=== PATIENT | male | born 1970 | race Caucasian/White ===

== ENCOUNTER 2017-02-24 07:28 | Observation (INO) | payer MEDICAID ==
[~2017-02-24] VITALS: Ht 165.1 cm; Wt 123.5 kg
[2017-02-24] MEDS ORDERED: ASPIRIN 325 MG TAB PO ONE (08:00)
[2017-02-24 08:18] LABS: BASOPHILS % 0.6 % (0.0-2.0); EOSINOPHILS # 0.1 10^3/ul (0.0-0.5); EOSINOPHILS % 2.1 % (0.0-7.0); HEMATOCRIT 39.9 % (42.0-52.0); HEMOGLOBIN 13.3 g/dl (14.0-18.0); LYMPHOCYTES # 2.6 10^3/ul (0.8-2.9); LYMPHOCYTES % 39.1 % (15.0-51.0); MEAN CORPUSCULAR HEMOGLOBIN 28.2 pg (29.0-33.0); MEAN CORPUSCULAR HGB CONC 33.3 g/dl (32.0-37.0); MEAN CORPUSCULAR VOLUME 84.5 fl (82.0-101.0); MEAN PLATELET VOLUME 9.2 fl (7.4-10.4); MONOCYTE # 0.5 10^3/ul (0.3-0.9); MONOCYTES % 7.7 % (0.0-11.0); NEUTROPHIL # 3.3 10^3/ul (1.6-7.5); NEUTROPHILS % 50.2 % (39.0-77.0); PLATELET COUNT 419 10^3/UL (140-415); RED BLOOD COUNT 4.72 10^6/ul (4.70-6.10); RED CELL DISTRIBUTION WIDTH 13.2 % (11.5-14.5); WHITE BLOOD COUNT 6.6 10^3/ul (4.8-10.8)
[2017-02-24 08:36] LABS: ANION GAP 21 (8-16); BLOOD UREA NITROGEN 14 mg/dl (7-20); CALCIUM 8.9 mg/dl (8.4-10.2); CARBON DIOXIDE 27 mmol/L (21-31); CHLORIDE 99 mmol/L (97-110); CREATININE 0.92 mg/dl (0.61-1.24); GLUCOSE 134 mg/dl (70-220); POTASSIUM 3.8 mmol/L (3.5-5.1); SODIUM 143 mmol/L (135-144)
[2017-02-24 08:37] LABS: INR 0.99; PROTIME 13.1 Sec (12.2-14.2)
[2017-02-24 08:38] LABS: PARTIAL THROMBOPLASTIN TIME 28.1 Sec (25.0-35.0)
--- NOTE | 2017-02-24 08:52 | RADRPT ---
PROCEDURE: Chest Radiograph. CLINICAL INDICATION: Chest pain TECHNIQUE: Single frontal chest radiograph. COMPARISON: None available FINDINGS: The cardiomediastinal silhouette is within normal limits. There is mild basilar atelectasis. No inf iltrate or effusion is seen. The bones are intact. IMPRESSION: 1. No evidence of acute cardiopulmonary disease. 2. Mild basilar atelectasis. RPTAT: KK .Fredis Ackerman MD, MD Date Time Electronically viewed and signed by .Fredis Ackerman MD, MD on 02/24/2017 08:52 .B/
[2017-02-24 08:55] LABS: TROPONIN-I < 0.012 ng/ml (0.00-0.12)
--- NOTE | 2017-02-24 09:02 | ERA ---
ER Documentation Chief Complaint Date/Time DATE: 02/24/17 TIME: 07 Chief Complaint syncope after having chest pain this morning HPI 46-year-old male presents complaining of chest pain and syncope. Patient was in his usual state of health until just prior to arrival. Patient was going to have a bowel movement when he had an episode of nonspecific central chest discomfort. This was non-provoked and nonradiating. He describes it as moderate and a 6/10. He was followed by a brief syncopal episode but no sensation of palpitations, headache or weakness or numbness or seizure activity. Upon arrival, patient continues to have nonspecific chest pain but no lightheadedness or neurologic symptoms. ROS All systems reviewed and are negative except as per history of present illness. Medications Home Meds No Active Prescriptions or Reported Meds Allergies Allergies: Coded Allergies: No Known Allergy (Unverified , 02/24/17) PMhx/Soc History of Surgery: No Anesthesia Reaction: No Hx Neurological Disorder: No Hx Respiratory Disorders: No Hx Cardiac Disorders: No Hx Psychiatric Problems: No Hx Miscellaneous Medical Probl: Yes (Gout) Hx Alcohol Use: Yes (socially) Hx Substance Use: No Hx Tobacco Use: No Smoking Status: Never smoker FmHx Family history of heart disease Physical Exam Vitals Vital Signs Date Time Temp Pulse Resp B/P Pulse Ox O2 Delivery O2 Flow Rate FiO2 02/24/17 07:33 97.4 88 18 144/78 96 Physical Exam GENERAL: The patient is well developed and appropriate for usual state of health in no apparent distress HEENT: Pupils equal, round, and reactive to light. EOMI. There is no scleral icterus. NECK: C-spine is soft and supple, there is no meningismus. There is no cervical lymphadenopathy. LUNGS: Clear to auscultation bilaterally. There are no rales, wheezes or rhonchi. HEART: Regular rate and rhythm, no murmurs, clicks, rubs or gallops. ABDOMEN: Soft, non-tender, non-distended. There are bowel sounds in all four quadrants. No rebound or guarding. EXTREMITIES: There is no peripheral cyanosis or edema. No focal swelling or erythema. NEURO: The patient moves all four extremities with 5/5 strength. Cranial nerves II - XII are intact. Normal gait. Alert and oriented SKIN: There is no apparent rash or petechiae. HEME/LYMPHATIC: There is no evidence of excessive bruising or lymphedema. PSYCHIATRIC: The patient does not appear anxious or depressed. Result Diagram: 02/24/1780402/24/17804 Results 24 hrs Laboratory Tests Test 02/24/17 08:05 White Blood Count 6.610^3/ul Red Blood Count 4.7210^6/ul Hemoglobin 13.3g/dl Hematocrit 39.9% Mean Corpuscular Volume 84.5fl Mean Corpuscular Hemoglobin 28.2pg Mean Corpuscular Hemoglobin Concent 33.3g/dl Red Cell Distribution Width 13.2% Platelet Count 10577^3/UL Mean Platelet Volume 9.2fl Neutrophils % 50.2% Lymphocytes % 39.1% Monocytes % 7.7% Eosinophils % 2.1% Basophils % 0.6% Nucleated Red Blood Cells % 0.0/100WBC Neutrophils # 3.310^3/ul Lymphocytes # 2.610^3/ul Monocytes # 0.510^3/ul Eosinophils # 0.110^3/ul Basophils # 0.010^3/ul Nucleated Red Blood Cells # 0.010^3/ul Prothrombin Time 13.1Sec Prothrombin Time Ratio 1.0 INR International Normalized Ratio 0.99 Activated Partial Thromboplast Time 28.1Sec Sodium Level 143mmol/L Potassium Level 3.8mmol/L Chloride Level 99mmol/L Carbon Dioxide Level 27mmol/L Anion Gap 21 Blood Urea Nitrogen 14mg/dl Creatinine 0.92mg/dl Glucose Level 134mg/dl Calcium Level 8.9mg/dl Troponin I < 0.012ng/ml Current Medications Medications (Trade) Dose Ordered Sig/Kem Route PRN Reason Start Time Stop Time Status Last Admin Dose Admin Aspirin (Aspirin) 325 mg ONCE ONCE PO 02/24/17 08:00 02/24/17 08:01 DC Procedures/MDM Patient was taken to a room, seen and evaluated. Comfort measures were initiated. Diagnostic tests were ordered and reviewed. 3 LEAD RHYTHM STRIP: Normal sinus rhythm without ectopy EK lead EKG reviewed by myself: Normal Sinus Rhythm Normal [place] and intervals No ST elevation, depression, or T wave inversion Impression: Normal EKG RADIOLOGY: reviewed with the radiologist CONSULTATION: hospitalist was notified for admission REEVALUATION: Patient has remained hemodynamically stable and comfortable appearing, diagnostic tests were discussed with him. MEDICAL DECISION MAKING: Patient presents after a syncopal episode associated with chest pain. Differential diagnosis considered focused on cardiac, neurologic, thromboembolic and other significant concerns for syncope as well as possible ischemia for the patient's chest pain. Diagnostic workup was appreciated. At this time, patient's troponin and EKG are reassuring. However, given his risk factors including his obesity and family history, he will be admitted for observation. Departure Diagnosis: Primary Impression: Syncope Additional Impression: Chest pain Condition: BENJIE Holm Feb 24, 2017 09:02
[2017-02-24] MEDS ORDERED: HYDROCODONE/APAP (5/325) TAB PO PRN (10:30)
[2017-02-24] MEDS ORDERED: NITROGLYCERIN (SL) 0.4 MG TAB SL PRN (10:30)
[2017-02-24] MEDS ORDERED: hydrALAzine 20 MG INJ IV PRN (10:30)
[2017-02-24] MEDS ORDERED: ONDANSETRON 4 MG INJ IV PRN (10:30)
[2017-02-24] MEDS ORDERED: ACETAMINOPHEN 325 MG TAB PO PRN (10:30)
[2017-02-24] MEDS ORDERED: BISACODYL (EC) 5 MG TAB PO PRN (10:30)
[2017-02-24] MEDS ORDERED: NACL 0.9% 3 ML SYG IV SCH (10:30)
[2017-02-24] MEDS ORDERED: MAGNESIUM HYDROXIDE 30ML CUP PO PRN (10:30)
[2017-02-24] MEDS ORDERED: IBUPROFEN 600 MG TAB PO ONE (11:00)
--- NOTE | 2017-02-24 11:33 | HP ---
Date/Time of Note Date/Time of Note DATE: 02/24/17 TIME: 11:33 Assessment/Plan VTE Prophylaxis VTE Prophylaxis Intervention: SCD's Lines/Catheters IV C[facility]ter Type [facility]from [facility] [place] Assessment/Plan Chief Complaint/Hosp Course 1. Chest pain. To rule out acute coronary syndrome. The patient is 46 years old and significant comorbidities only obesity and family history of CAD. The patient will be ruled out for any underlying acute coronary syndrome. Serial troponins will be obtained. A 2D echocardiogram will be obtained. Cardiology consult will be obtained. The patient will be continued on aspirin if the patient's brain CT scan is negative for any hemorrhage. 2. Syncope. Etiology unclear. Brain CT scan will be obtained. A carotid Doppler study will be obtained. The patient's telemetry rhythm will be monitored closely. 3. Gout. A serum uric acid level will be obtained. The patient denies any joint pain at this time. 4. Obesity. BMI of 43.9 kg/m. Weight reduction will be obtained. A hemoglobin A1c and fasting lipid panel will be obtained. Plan: The patient will be admitted to inpatient telemetry floor. The patient will be started on a low-cholesterol diet. The patient will be started on DVT prophylaxis and gastrointestinal prophylaxis. The patient will remain a full code. Activities will be as tolerated. The rest of the patient's management will be based on the clinical course and the results of diagnostic studies. Based on the patient's clinical presentation, he most probably requires at least one midnight's stay for further management and evaluation of his clinical presentation. The case and management of this patient was fully discussed with Dr. Clement. Problems: HPI/ROS Admit Date/Time Admit Date/Time Hx of Present Illness Reason for admission: Chest pain with syncope. Chin Strap Maker 1. Byron Mendez DO, Cardiology. This is a morbidly obese 46-year-old male who denies any significant past medical history other than history of gout but a family history of coronary artery disease who came to the emergency room after he had a syncopal episode at home. The patient verbalized that he was having a bowel movement and then he felt a sudden sharp pain in the mid chest. And he does not remember anything. When he woke up, he was on the floor with his face facing on the floor. The patient's spouse heard the noise when he fell down. There was no reported seizure activities. Afterwards, the patient sat in a couch when he felt severe weakness of all extremities. The patient denied any associated nausea, vomiting, or diaphoresis. The patient's chest pain was resolved after he woke up from syncopal episode. However, later he developed some chest heaviness. The patient denied any fevers, chills, cough, dyspnea, abdominal pain, diarrhea, or dysuria. In the emergency room, the patient's 12-lead EKG showed normal sinus rhythm. The patient's initial troponins were negative. The patient was treated with a single dose of aspirin and a single dose of Motrin in the emergency room. ROS Constitutional: no complaints Eyes: no complaints ENT: no complaints Respiratory: no complaints Cardiovascular: chest pain Gastrointestinal: no complaints Genitourinary: no complaints Musculoskeletal: bone/joint pain (Right mandibular) Skin: no complaints Neurologic: syncope Endocrine: no complaints Lymphatic: no complaints Psychological: no complaints Immunologic: no complaints PMH/Family/Social Past Medical History Medical History: other (Gout) Past Surgical History Past Surgical Hx: other (Right forearm surgery secondary to an accident.) Family History Significant Family History: heart disease (In mother) Social History 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 Lives at home with family. Alcohol Use: none Smoking Status: Never smoker Drug Use: none Exam/Review of Systems Vital Signs Vitals Vital Signs Date Time Temp Pulse Resp B/P Pulse Ox O2 Delivery O2 Flow Rate FiO2 02/24/17 09:56 97.4 64 20 132/75 98 Exam Exam General: Morbidly obese 46 year-old male lying in bed in no apparent distress. HEENT: Normocephalic. Right forehead erythema. Eyes: Anicteric sclerae, conjunctivae clear. ENT: Nasal septum midline, oral mucosa moist. Neck supple, no JVD noticed. Respiratory: Bilaterally clear breath sounds. No use of accessory muscles of respiration. No adventitious breath sounds. Cardiovascular: S1, S2 heard. No murmurs or gallops. Abdomen: Soft, nontender, and nondistended. Bowel sounds positive in all 4 quadrants. Genitourinary: Deferred. Extremities: No cyanosis, no clubbing, no edema. Peripheral pulses palpable. Neurologic: Cranial nerves II through XII grossly intact. The patient is awake, alert, and oriented. Skin: Normal skin turgor. No skin rashes. Labs Result Diagram: 02/24/1780402/24/17804 Medications Medications Current Medications Ondansetron HCl (Zofran Inj) 4 mg Q6H PRN IV NAUSEA AND/OR VOMITING; Start at 10:30 Aspirin (Aspirin) 81 mg DAILY PO ; Start 02/25/17 at 09:00 Nitroglycerin (Nitroglycerin (Sl Tab) 0.4 Mg) 1 tab Q5M PRN SL CHEST PAIN; Start 02/24/17 at 10:30 Acetaminophen (Tylenol Tab) 650 mg Q6H PRN PO PAIN LEVEL 1-3 OR FEVER; Start at 10:30 Acetaminophen/ Hydrocodone Bitart ([place] (5/325)) 1 tab Q6H PRN PO PAIN LEVEL 4 -6; Start 02/24/17 at 10:30 Magnesium Hydroxide (Milk Of Mag) 30 ml DAILY PRN PO CONSTIPATION; Start at 10:30 Bisacodyl (Dulcolax) 5 mg DAILY PRN PO CONSTIPATION; Start 02/24/17 at 10:30 Famotidine (Pepcid) 20 mg Q12 PO ; Start 02/24/17 at 21:00 Enoxaparin Sodium (Lovenox) 40 mg DAILY SC ; Start 02/25/17 at 09:00 Hydralazine HCl (Apresoline) 10 mg Q6H PRN IV SBP>160; Start 02/24/17 at 10:30 Procedures Procedures CXR IMPRESSION: 1. No evidence of acute cardiopulmonary disease. 2. Mild basilar atelectasis. 12-Lead EKG Normal sinus rhythm. LUIS PEREZ NP Feb 24, 2017 11:33
--- NOTE | 2017-02-24 12:03 | RADRPT ---
PROCEDURE: US Carotids. CLINICAL INDICATION: bruit , Syncope TECHNIQUE: Multiple sonographic of the carotid bifurcation region and vertebral arteries were obta ined utilizing anna scale, duplex and color-flow imaging. The images were reviewed on a PACS worksta tion. COMPARISON: No prior studies are available for comparison. FINDINGS: Evaluation of the right carotid bifurcation region reveals no significant calcific atherosclerotic d isease. Evaluation of the left carotid bifurcation region reveals no significant calcific atherosclerotic di sease. There is antegrade flow within the vertebral arteries bilaterally. RIGHT CAROTID MEASUREMENTS: Common Carotid Jbowtp98.1 (cm/sec) Internal Carotid Artery - riiyfjen88.5 (cm/sec) Internal Carotid Artery - mid73.5 (cm/sec) Internal Carotid Artery - udpdrw63.2 (cm/sec) Internal Carotid/Common Carotid0.82 LEFT CAROTID MEASUREMENTS: Common Carotid Dvicga447.1 (cm/sec) Internal Carotid Artery - rbugbjan029.4 (cm/sec) Internal Carotid Artery - mid54.7 (cm/sec) Internal Carotid Artery - .7 (cm/sec) Internal Carotid/Common Carotid1.36 RPTAT: AA IMPRESSION: No evidence for hemodynamically significant stenosis in the bilateral internal carotid arteries - va lidated velocity measurements with angiographic measurements, velocity criteria are extrapolated fro m diameter data as defined by the Society of Radiologists in Ultrasound Consensus Conference Radiolo gy 2003; 229;340-346. This study does indirectly reference the measurement of the distal ICA diamet er as the denominator for stenosis measurement. Normal antegrade flow in the vertebral arteries bilaterally. .Rivera Brand MD, MD Date Time Electronically viewed and signed by .Rivera Brand MD, MD on 02/24/2017 12:03 .S/
--- NOTE | 2017-02-24 12:47 | RADRPT ---
PROCEDURE: CT Brain without. CLINICAL INDICATION: Fall, trauma, pain. TECHNIQUE: A CT of the brain was performed on multidetector high-resolution CT scanner utilizing a xial sections from the skull base through the vertex without contrast. The scan was reviewed in sof t tissue brain and high frequency resolution bone algorithm windows. Images were reviewed on a high -resolution PACS workstation. One or more the following does reduction techniques were utilized: Aut omated exposure control, adjustment of the mA/ or kV according to patient's size, or use of iterativ e reconstruction technique. The exam CTDI = 43.95 mGy and the DLP = 720.23 mGy-cm. COMPARISON: None available. FINDINGS: The ventricles and sulci are minimally prominent indicative of volume loss. There is no intracrania l hemorrhage, mass effect or midline shift. No abnormal intra-axial or extra-axial fluid collection s are seen. The anna/white matter differentiation is preserved. No acute skull abnormality is noted. The visualized paranasal sinuses are essentially clear. IMPRESSION: 1. No acute intracranial hemorrhage, transcortical infarction or mass effect. 2. Minimal generalized cerebral volume loss. RPTAT: HH .Minal Vaughn MD, MD Date Time Electronically viewed and signed by .Minal Vaughn MD, MD on 02/24/2017 12:47 .N/
--- NOTE | 2017-02-24 12:50 | RADRPT ---
PROCEDURE: CT scan facial bones CLINICAL INDICATION: Trauma. Facial injury. Pain. TECHNIQUE: CT scan of the face was performed on the a high-resolution multidetector CT scanner wit h multiple contiguous axial images obtained through the face. Coronal and sagittal reformatted imag es were obtained from the axial source images. One or more the following does reduction techniques w ere utilized: Automated exposure control, adjustment of the mA/ or kV according to patient's size, o r use of iterative reconstruction technique. Exam CTDI = 43.95 mGy and the DLP = 720.23 mGy-cm. COMPARISON: None available. FINDINGS: No acute fracture or dislocation is seen. No significant soft tissue swelling is noted. The orbita l globes are unremarkable. Nasal septum is intact. Paranasal sinuses demonstrate mild scattered muc osal thickening mainly in ethmoid air cells and maxillary sinuses. IMPRESSION: 1. No acute facial fracture or dislocation. 2. Mild scattered paranasal sinus disease. RPTAT: HH .Minal Vaughn MD, Date Time Electronically viewed and signed by .Minal Vaughn MD, MD on 02/24/2017 12:49 .N/
[2017-02-24 13:09] LABS: CREATINE KINASE 792 IU/L (23-200)
[2017-02-24 13:39] LABS: CHOL/HDL RATIO 7.5 RATIO
[2017-02-24 13:42] LABS: CK-MB 2.88 ng/ml (0.0-2.4); TROPONIN-I < 0.012 ng/ml (0.00-0.12)
[2017-02-24 14:13] VITALS: TEMP 97.9
--- NOTE | 2017-02-24 14:55 | CONS ---
Date/Time of Note Date/Time of Note DATE: 02/24/17 TIME: 14:43 Assessment/Plan Assessment/Plan Additional Assessment/Plan Syncope Chest pain Obesity -Patient with syncope when sitting down the toilet. Chest discomfort was sharp in nature. Denies exertional chest pain or shortness of breath and is currently asymptomatic. ECG without significant ischemic abnormalities. Carotid Dopplers with no evidence of significant stenosis. Will obtain serial cardiac enzymes, echocardiogram to rule out structural heart disease, d-dimer and venous Dopplers, continue telemetry monitoring. Consultation Date/Type/Reason Admit Date/Time Type of Consultation: cv Reason for Consultation Chest pain and syncope Hx of Present Illness This is a 46-year-old male with no significant past medical history except for gout presents after an episode of chest pain and syncope. Patient states she woke up this morning in his normal state of health and went to go sit on the toilet to have a bowel movement. As he was sitting down, he developed sharp chest discomfort in his mid chest. This was severe. He then felt lightheaded and lost consciousness. He woke up on the floor of the bathroom. Afterwards, he stood up and walk to the living room and felt very weak and had to lie down. Because of the above symptoms, he came to the emergency room for further evaluation and care. He currently denies any chest discomfort, dizziness, shortness of breath or palpitations. Prior to this episode, he denies any exertional chest pain or shortness of breath. 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 He tells me he does do vigorous physical activity without exertional chest pain and shortness of breath. He denies any abdominal pain, nausea or vomiting. 12 point review of systems was performed with all pertinent positives and negatives mentioned above and all else is negative Eyes: no complaints ENT: no complaints Respiratory: no complaints Cardiovascular: chest pain Gastrointestinal: no complaints Genitourinary: no complaints Musculoskeletal: bone/joint pain (Right mandibular) Skin: no complaints Neurologic: syncope Lymphatic: no complaints Psychological: no complaints Immunologic: no complaints Past Medical History Gout Medical History: other (Gout) Past Surgical History Past Surgical Hx: other (Right forearm surgery secondary to an accident.) Family History Significant Family History: other (Mother with heart disease in her 60s) Social History Alcohol Use: none Smoking Status: Never smoker Drug Use: none Other Social History 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 Exam/Review of Systems Vital Signs Vitals Vital Signs Date Time Temp Pulse Resp B/P Pulse Ox O2 Delivery O2 Flow Rate FiO2 02/24/17 14:13 97.9 75 18 132/79 98 Exam No apparent distress Constitutional: alert, obese, oriented, well developed Head: normocephalic Neck: supple Respiratory: clear to auscultation, normal air movement Cardiovascular: other (S1-S2 heard), regular rate and rhythm Gastrointestinal: bowel sounds, non-tender, other (No guarding), soft Extremities: edema Results Result Diagram: 02/24/17 0802/24/17 08 Results 24 hrs Laboratory Tests Test 02/24/17 08:05 02/24/17 12:45 White Blood Count 6.6 Red Blood Count 4.72 Hemoglobin 13.3 L Hematocrit 39.9 L Mean Corpuscular Volume 84.5 Mean Corpuscular Hemoglobin 28.2 L Mean Corpuscular Hemoglobin Concent 33.3 Red Cell Distribution Width 13.2 Platelet Count 419 H Mean Platelet Volume 9.2 Neutrophils % 50.2 Lymphocytes % 39.1 Monocytes % 7.7 Eosinophils % 2.1 Basophils % 0.6 Nucleated Red Blood Cells % 0.0 Neutrophils # 3.3 Lymphocytes # 2.6 Monocytes # 0.5 Eosinophils # 0.1 Basophils # 0.0 Nucleated Red Blood Cells # 0.0 Prothrombin Time 13.1 Prothrombin Time Ratio 1.0 INR International Normalized Ratio 0.99 Activated Partial Thromboplast Time 28.1 Sodium Level 143 Potassium Level 3.8 Chloride Level 99 Carbon Dioxide Level 27 Anion Gap 21 H Blood Urea Nitrogen 14 Creatinine 0.92 Glucose Level 134 Uric Acid 11.2 H Calcium Level 8.9 Troponin I < 0.012 < 0.012 Triglycerides Level 282 H Cholesterol Level 182 LDL Cholesterol, Calculated 102 HDL Cholesterol 24 L Cholesterol/HDL Ratio 7.5 Thyroid Stimulating Hormone (TSH) 2.480 Free Thyroxine 1.25 Creatine Kinase 792 H Creatine Kinase Index 0.4 Creatinine Kinase MB (Mass) 2.88 H Medications Medications Current Medications Ondansetron HCl (Zofran Inj) 4 mg Q6H PRN IV NAUSEA AND/OR VOMITING; Start at 10:30 Aspirin (Aspirin) 81 mg DAILY PO ; Start 02/25/17 at 09:00 Nitroglycerin (Nitroglycerin (Sl Tab) 0.4 Mg) 1 tab Q5M PRN SL CHEST PAIN; Start 02/24/17 at 10:30 Acetaminophen (Tylenol Tab) 650 mg Q6H PRN PO PAIN LEVEL 1-3 OR FEVER; Start at 10:30 Acetaminophen/ Hydrocodone Bitart ([place] (5/325)) 1 tab Q6H PRN PO PAIN LEVEL 4 -6; Start 02/24/17 at 10:30 Magnesium Hydroxide (Milk Of Mag) 30 ml DAILY PRN PO CONSTIPATION; Start at 10:30 Bisacodyl (Dulcolax) 5 mg DAILY PRN PO CONSTIPATION; Start 02/24/17 at 10:30 Famotidine (Pepcid) 20 mg Q12 PO ; Start 02/24/17 at 21:00 Hydralazine HCl (Apresoline) 10 mg Q6H PRN IV SBP>160; Start 02/24/17 at 10:30 Allopurinol (Zyloprim) 100 mg BID PO ; Start 02/24/17 at 21:00 Procedures Procedures ECG done today demonstrates sinus rhythm at 86 bpm, QRS 94 ms, no significant ischemic STT wave abnormalities Byron Mendez DO Feb 24, 2017 14:53
--- NOTE | 2017-02-24 15:20 | RADRPT ---
PROCEDURE: US Lower extremity Venous. CLINICAL INDICATION: Bilateral lower extremity edema , shortness of breath TECHNIQUE: Multiple sonographic images of the bilateral lower extremity deep venous system was obt ained utilizing grayscale, color-flow, compressive sonography and doppler imaging with augmentation. The images were reviewed on a PACS workstation. COMPARISON: None. FINDINGS: There is normal compressibility and flow within the bilateral common femoral, femoral , posterior ti bial and popliteal veins. RPTAT: AA IMPRESSION: No sonographic evidence for deep venous thrombosis. .Rivera Brand MD, MD Date Time Electronically viewed and signed by .Rivera Brand MD, on 02/24/2017 15:20 .S/
[2017-02-24 15:52] VITALS: BP 128/75; RESP 17
[2017-02-24 16:15] LABS: D-DIMER 358.06 ng/ml (<460)
[2017-02-24 16:34] VITALS: PULSE 74
--- NOTE | 2017-02-24 16:53 | RADRPT ---
Echocardiogram Report Patient Name: SELWYN FERRELL Gender: Male Date: 1970 Study Date: 24-Feb-2017 Cleaner Operator: Morgan [facility] Location: [address] Ref. Physician: LUIS PEREZ Quality: Adequate Procedures: Transthoracic echocardiogram with complete 2D, M-Mode, and doppler examination. Indications: Chest Pain. 2D/M Mode Doppler Measurement Value Normal Ranges Measurement Value Normal Ranges LVIDd 2D 4.7 3.5 - 5.6 cm AV Peak Jamel 1.5 m/sec LVIDs 2D 3.3 2.1 - 4.1 cm AV Peak PG 9.0 mmHg FS 2D 30.7 % LVOT Peak Jamel 1.3 m/sec LVPWd 2D 1.5 0.6 - 1.1 cm LVOT Peak PG 6.0 mmHg IVSd 2D 1.5 0.6 - 1.1 cm MV E Peak Jamel 1.0 m/sec IVS/LVPW 2D 1.0 MV A Peak Jamel 0.8 m/sec AoR Diam 2D 2.8 2.0 - 3.7 cm MV E/A 1.2 LA/Ao 2D 1 0 - 1 MV Decel Time 250 msec EDV 2D 105.0 cm3 MV E/A 1.2 ESV 2D 35.0 cm3 TR Peak Jamel 2.5 m/sec LA Dimen 2D 3.8 2.3 - 4.0 cm TR Peak PG 24.0 mmHg RVSP 27.0 mmHg Findings Left Ventricle: Lower limits of normal systolic function. Normal left ventricular cavity size. Moderate concentric left ventricular hypertrophy. Ejection fraction is visually estimated at 55 %. Abnormal Diastolic Function. Right Ventricle: Normal right ventricular size. Normal right ventricular systolic function. Left Atrium: The left atrium is normal in size. Right Atrium: The right atrium is normal in size. Mitral Valve: Mitral valve leaflets appear mildly thickened. Mild mitral annular calcification. Trace mitral regurgitation. Aortic Valve: Normal appearance of the aortic valve. No significant aortic stenosis or insufficiency. Tricuspid Valve: Normal appearance and function of the tricuspid valve with trace physiologic regurgitation. Estimated peak PA systolic pressure 27 mmHg. Pulmonic Valve: Pulmonic valve not well visualized. There is trace pulmonic regurgitation. Pericardium: Normal pericardium with no significant pericardial effusion. Aorta: Normal aortic root. IVC: Normal size and normal respiratory collapse consistent with normal right atrial pressure. Conclusions 1.Lower limits of normal systolic function. Normal left ventricular cavity size. Moderate concentric left ventricular hypertrophy. Ejection fraction is visually estimated at 55 %. Abnormal Diastolic Function. 2.Normal right ventricular size. Normal right ventricular systolic function. 3.The left atrium is normal in size. 4.The right atrium is normal in size. 5.No significant valvular stenosis or regurgitation seen. 6.Normal pericardium with no significant pericardial effusion. Electronically Signed By: Byron Mendez 24-Feb-2017 16:52:59 -0700 Patient Name: SELWYN FERRELL Study Date: 24-Feb-2017 [id number]
[2017-02-24 17:49] VITALS: Ht 165.1 cm; Wt 123.5 kg
[2017-02-24 20:09] VITALS: PULSE 73
[2017-02-24 20:18] VITALS: BP 132/65; RESP 16
[2017-02-24] MEDS: ALLOPURINOL 100 MG TAB PO SCH (20:22)
[2017-02-24] MEDS: FAMOTIDINE 20 MG TAB PO SCH (20:22)
[2017-02-24 20:30] LABS: CREATINE KINASE 813 IU/L (23-200)
[2017-02-24 20:42] LABS: CK-MB 2.42 ng/ml (0.0-2.4); TROPONIN-I < 0.012 ng/ml (0.00-0.12)
[2017-02-24 20:51] LABS: BARBITURATES NEGATIVE (NEGATIVE); BENZODIAZEPINES NEGATIVE (NEGATIVE); CANNABINOIDS NEGATIVE (NEGATIVE); COCAINE NEGATIVE (NEGATIVE); OPIATES NEGATIVE (NEGATIVE)
[2017-02-25] VITALS (10 sets, daily range): BP systolic 118–140; BP diastolic 62–79; PULSE 67–97; RESP 17–20
[2017-02-25 08:13] LABS: BASOPHIL # 0.1 10^3/ul (0.0-0.1); BASOPHILS % 0.7 % (0.0-2.0); EOSINOPHILS # 0.2 10^3/ul (0.0-0.5); EOSINOPHILS % 2.1 % (0.0-7.0); HEMATOCRIT 40.6 % (42.0-52.0); LYMPHOCYTES # 2.4 10^3/ul (0.8-2.9); LYMPHOCYTES % 34.1 % (15.0-51.0); MEAN CORPUSCULAR HEMOGLOBIN 27.3 pg (29.0-33.0); MEAN CORPUSCULAR VOLUME 85.1 fl (82.0-101.0); MEAN PLATELET VOLUME 9.3 fl (7.4-10.4); MONOCYTE # 0.6 10^3/ul (0.3-0.9); MONOCYTES % 7.8 % (0.0-11.0); NEUTROPHIL # 3.9 10^3/ul (1.6-7.5); NEUTROPHILS % 54.9 % (39.0-77.0); PLATELET COUNT 433 10^3/UL (140-415); RED BLOOD COUNT 4.77 10^6/ul (4.70-6.10); RED CELL DISTRIBUTION WIDTH 13.4 % (11.5-14.5)
[2017-02-25 08:38] LABS: MAGNESIUM 2.3 mg/dl (1.7-2.5); PHOSPHORUS 3.5 mg/dl (2.5-4.9)
[2017-02-25] MEDS ORDERED: ENOXAPARIN 40 MG/0.4 ML SYG SC SCH (09:00)
[2017-02-25] MEDS ORDERED: ASPIRIN 81 MG TAB PO SCH (09:00)
--- NOTE | 2017-02-25 09:02 | RADRPT ---
Vent Rate: 76 bpm RR Interval: 0 msec NE Interval: 132 msec QRS Duration: 92 msec QT Interval: 396 msec QTC Interval: 445 msec P-R-T [place]: 59 - 79 - 63 degrees Sinus rhythm with occasional premature ventricular complexes Incomplete right bundle branch block Borderline ECG Electronically Signed By: Javid Angel [id number]
[2017-02-25 09:17] LABS: ALBUMIN 4.1 g/dl (3.3-4.9); ALBUMIN/GLOBULIN RATIO 1.17; BILIRUBIN,INDIRECT 0.6 mg/dl (0-1.1); BILIRUBIN,TOTAL 0.6 mg/dl (0.2-1.3); CALCIUM 9.1 mg/dl (8.4-10.2); CREATININE 0.83 mg/dl (0.61-1.24); POTASSIUM 4.9 mmol/L (3.5-5.1); TOTAL PROTEIN 7.6 g/dl (6.1-8.1)
[2017-02-25] MEDS: ALLOPURINOL 100 MG TAB PO SCH (09:40)
[2017-02-25] MEDS: FAMOTIDINE 20 MG TAB PO SCH (09:45)
[2017-02-25] MEDS: SOD CHLORIDE 0.9% 1,000 ML IV SCH ×2 (09:45→15:30)
--- NOTE | 2017-02-25 17:26 | PDOCDIS ---
Discharge Instructions DIAGNOSIS Discharge Diagnosis Atypical chest pain. CONDITION Patient Condition: Stable FOLLOW UP/APPOINTMENTS Follow-up Plan Feroz Delgado MD Specialty: Internal Medicine Office Address: [address] [place] [address] [place] [address] Office OTHER ORDERS: Other Orders: 1. Take a low-cholesterol, low carbohydrate diet. 2. Follow-up with your primary care physician 1 week. If you do not have a primary care physician, please call Dr. Feroz Delgado's office. 3. Take medications for your gout. 4. Activities as tolerated. 5. Please call 911 or go to the nearest emergency room if you have any significant chest pain, shortness of breath, or any other unusual signs/ symptoms. LUIS PEREZ NP Feb 25, 2017 17:26
[2017-02-25] MEDS ORDERED: ALLO100T PO (17:27)
--- NOTE | 2017-02-25 17:39 | CONS ---
Date/Time of Note Date/Time of Note DATE: 02/25/17 TIME: 17:37 Assessment/Plan Assessment/Plan Additional Assessment/Plan Syncope Chest pain, resolved Obesity Low normal ejection fraction 50% -On review of telemetry, patient with brief episodes of accelerated intraventricular rhythm remains asymptomatic. Serial cardiac enzymes remain negative, echocardiogram with low normal ejection fraction of 50%. Venous Dopplers and d-dimer tests unremarkable. The AIVR is likely an incidental finding. No further inpatient cardiac workup needed at the current time. Consultation Date/Type/Reason Admit Date/Time Feb 24, 2017 at 09:13 Initial Consult Date Type of Consultation: cv 24 HR Interval Summary Free Text/Dictation Denies further chest pain, shortness of breath or dizziness Exam/Review of Systems Vital Signs Vitals Vital Signs Date Time Temp Pulse Resp B/P Pulse Ox O2 Delivery O2 Flow Rate FiO2 02/25/17 16:29 72 02/25/17 15:21 98.2 17 128/72 96 Intake and Output 02/24/17 02/24/17 02/25/17 15:00 23:00 07:00 Intake Total 480 ml 500 ml Balance 480 ml 500 ml Exam No apparent distress Constitutional: alert, obese, oriented Head: normocephalic Neck: supple Respiratory: other (Coarse breath sounds bilaterally, no wheezing) Cardiovascular: other (S1-S2 heard), regular rate and rhythm Gastrointestinal: bowel sounds, non-tender, soft Extremities: edema (Trace) Results Result Diagram: 02/25/17 0720 02/25/17 0720 Results 24 hrs Laboratory Tests Test 02/24/17 20:00 02/25/17 07:20 Creatine Kinase 813 H Creatine Kinase Index 0.3 Creatinine Kinase MB (Mass) 2.42 H Troponin I < 0.012 Urine Opiates Screen NEGATIVE Urine Barbiturates NEGATIVE Urine Amphetamines Screen NEGATIVE Urine Benzodiazepines Screen NEGATIVE Urine Cocaine Screen NEGATIVE Urine Cannabinoids NEGATIVE White Blood Count 7.0 Red Blood Count 4.77 Hemoglobin 13.0 L Hematocrit 40.6 L Mean Corpuscular Volume 85.1 Mean Corpuscular Hemoglobin 27.3 L Mean Corpuscular Hemoglobin Concent 32.0 Red Cell Distribution Width 13.4 Platelet Count 433 H Mean Platelet Volume 9.3 Neutrophils % 54.9 Lymphocytes % 34.1 Monocytes % 7.8 Eosinophils % 2.1 Basophils % 0.7 Nucleated Red Blood Cells % 0.0 Neutrophils # 3.9 Lymphocytes # 2.4 Monocytes # 0.6 Eosinophils # 0.2 Basophils # 0.1 Nucleated Red Blood Cells # 0.0 Sodium Level 142 Potassium Level 4.9 Chloride Level 98 Carbon Dioxide Level 28 Anion Gap 21 H Blood Urea Nitrogen 14 Creatinine 0.83 Glucose Level 107 Uric Acid 9.4 H Calcium Level 9.1 Phosphorus Level 3.5 Magnesium Level 2.3 Total Bilirubin 0.6 Direct Bilirubin 0.00 Indirect Bilirubin 0.6 Aspartate Amino Transf (AST/SGOT) 52 H Alanine Aminotransferase (ALT/SGPT) 64 Alkaline Phosphatase 102 Total Protein 7.6 Albumin 4.1 Globulin 3.50 H Albumin/Globulin Ratio 1.17 Medications Medications Current Medications Ondansetron HCl (Zofran Inj) 4 mg Q6H PRN IV NAUSEA AND/OR VOMITING; Start at 10:30 Aspirin (Aspirin) 81 mg DAILY PO Last administered on 02/25/17 09:40; Admin Dose 81 MG; Start 02/25/17 at 09:00 Nitroglycerin (Nitroglycerin (Sl Tab) 0.4 Mg) 1 tab Q5M PRN SL CHEST PAIN; Start 02/24/17 at 10:30 Acetaminophen (Tylenol Tab) 650 mg Q6H PRN PO PAIN LEVEL 1-3 OR FEVER; Start at 10:30 Acetaminophen/ Hydrocodone Bitart ([place] (5/325)) 1 tab Q6H PRN PO PAIN LEVEL 4 -6; Start 02/24/17 at 10:30 Magnesium Hydroxide (Milk Of Mag) 30 ml DAILY PRN PO CONSTIPATION; Start at 10:30 Bisacodyl (Dulcolax) 5 mg DAILY PRN PO CONSTIPATION; Start 02/24/17 at 10:30 Famotidine (Pepcid) 20 mg Q12 PO Last administered on 02/25/17 09:45; Admin Dose 20 MG; Start 02/24/17 at 21:00 Hydralazine HCl (Apresoline) 10 mg Q6H PRN IV SBP>160; Start 02/24/17 at 10:30 Allopurinol 100 mg 100 mg BID PO Last administered on 02/25/17 09:40; Admin Dose 100 MG; Start 02/24/17 at 21:00 Sodium Chloride (NS) 1,000 ml @ 125 mls/hr Q8H IV Last administered on t 15:30; Admin Dose 125 MLS/HR; Start 02/25/17 at 08:00 Byron Mendez DO Feb 25, 2017 17:39
--- NOTE | 2017-02-25 18:15 | DS ---
Date/Time of Note Date/Time of Note DATE: 02/25/17 TIME: 18:13 Discharge Summary Admission/Discharge Info Admit Date/Time Feb 24, 2017 at 09:13 Discharge Date/Time Discharge Diagnosis 1. Chest pain. ACS ruled out. 2. Syncope. 3. Dyslipidemia. 4. Rhabdomyolysis. 5. Gout. 6. Prediabetes. 7. Obesity. Patient Condition: Stable Consults Byron Mendez DO, Cardiology Procedures Brain CT IMPRESSION: 1. No acute intracranial hemorrhage, transcortical infarction or mass effect. 2. Minimal generalized cerebral volume loss. 2D Echocardiogram Conclusions 1. Lower limits of normal systolic function. Normal left ventricular cavity size. Moderate concentric left ventricular hypertrophy. Ejection fraction is visually estimated at 55 %. Abnormal Diastolic Function. 2. Normal right ventricular size. Normal right ventricular systolic function. 3. The left atrium is normal in size. 4. The right atrium is normal in size. 5. No significant valvular stenosis or regurgitation seen. 6. Normal pericardium with no significant pericardial effusion. Carotid Doppler Study IMPRESSION: No evidence for hemodynamically significant stenosis in the bilateral internal carotid arteries - validated velocity measurements with angiographic measurements, Face CT IMPRESSION: 1. No acute facial fracture or dislocation. 2. Mild scattered paranasal sinus disease. Bilateral Lower Extremity Venous Doppler Study IMPRESSION: No sonographic evidence for deep venous thrombosis. Hx of Present Illness Reason for admission: Chest pain with syncope. Garment Folder 1. Byron Mendez DO, Cardiology. This is a morbidly obese 46-year-old male who denies any significant past medical history other than history of gout but a family history of coronary artery disease who came to the emergency room after he had a syncopal episode at home. The patient verbalized that he was having a bowel movement and then he felt a sudden sharp pain in the mid chest. And he does not remember anything. When he woke up, he was on the floor with his face facing on the floor. The patient's spouse heard the noise when he fell down. There was no reported seizure activities. Afterwards, the patient sat in a couch when he felt severe weakness of all extremities. The patient denied any associated nausea, vomiting, or diaphoresis. The patient's chest pain was resolved after he woke up from syncopal episode. However, later he developed some chest heaviness. The patient denied any fevers, chills, cough, dyspnea, abdominal pain, diarrhea, or dysuria. In the emergency room, the patient's 12-lead EKG showed normal sinus rhythm. The patient's initial troponins were negative. The patient was treated with a single dose of aspirin and a single dose of Motrin in the emergency room. Hospital Course The patient was admitted to inpatient telemetry floor. Serial troponins were obtained. A 2D echocardiogram was obtained. The patient's serial troponins remained negative. The patient's 2D echocardiogram showed left ventricular ejection fraction of 55%. The patient's chest pain has completely resolved. The patient was ruled out for any underlying acute coronary syndrome. The patient was noticed to have dyslipidemia with elevated triglycerides and suboptimal HDL and suboptimal LDL. The patient was also noticed to have mild rhabdomyolysis, most probably secondary to the patient's fall. This was treated with IV fluids. The patient's renal function remained stable. The patient was also noticed to have prediabetes with a hemoglobin A1c of 6.0. The patient is morbidly obese with a BMI of 45.3 kg/m. The patient was instructed on a low-cholesterol, carbohydrate controlled diet. The patient's syncopal episode was extensively evaluated. The patient's brain CT scan was negative for any acute intracranial findings. The patient's carotid Doppler study was negative for any hemodynamically significant stenosis. The patient had no evidence of any significant cardiac arrhythmias that can contribute to the syncope. The patient's syncope was concluded to be most probably secondary to vasovagal response unless otherwise proven. The patient has underlying gout. The patient was noticed to have elevated uric acid levels. The patient was started on allopurinol with improvement of the patient's uric acid levels. The patient had a stable hospital course. The patient was cleared by cardiology to be discharged home. The patient denied any complaints at the time of discharge. Discharge Instructions 1. Take a low-cholesterol, low carbohydrate diet. 2. Follow-up with your primary care physician 1 week. If you do not have a primary care physician, please call Dr. Feroz Delgado's office. 3. Take medications for your gout. 4. Activities as tolerated. 5. Please call 911 or go to the nearest emergency room if you have any significant chest pain, shortness of breath, or any other unusual signs/ symptoms. The patient verbalized understanding of his discharge instructions. At this time I would like to thank Dr. Mendez for seeing the patient and providing clinical recommendations. Case discussed with Dr. Clement [place] Meds Active Scripts Allopurinol* (Allopurinol*) 100 Mg Tablet, 100 MG PO BID for 30 Days, #60 TAB Prov:LUIS PEREZ COST RECORDER 02/25/17 Follow-up Plan Please follow-up with your primary care physician 1 week. If you do not have a primary care physician, please call Dr. Feroz Delgado's office. Primary Care Provider Care Physician No Primary Time spent on discharge: > 30 minutes Pending Labs Laboratory Tests Test 02/24/17 20:00 02/25/17 07:20 Creatine Kinase 813IU/L (23-200) Creatine Kinase Index 0.3 Creatinine Kinase MB (Mass) 2.42ng/ml (0.0-2.4) Troponin I < 0.012ng/ml (0.00-0.12) Urine Opiates Screen NEGATIVE (NEGATIVE) Urine Barbiturates NEGATIVE (NEGATIVE) Urine Amphetamines Screen NEGATIVE (NEGATIVE) Urine Benzodiazepines Screen NEGATIVE (NEGATIVE) Urine Cocaine Screen NEGATIVE (NEGATIVE) Urine Cannabinoids NEGATIVE (NEGATIVE) White Blood Count 7.010^3/ul (4.8-10.8) Red Blood Count 4.7710^6/ul (4.70-6.10) Hemoglobin 13.0g/dl (14.0-18.0) Hematocrit 40.6% (42.0-52.0) Mean Corpuscular Volume 85.1fl (82.0-101.0) Mean Corpuscular Hemoglobin 27.3pg (29.0-33.0) Mean Corpuscular Hemoglobin Concent 32.0g/dl (32.0-37.0) Red Cell Distribution Width 13.4% (11.5-14.5) Platelet Count 83719^3/UL (140-415) Mean Platelet Volume 9.3fl (7.4-10.4) Neutrophils % 54.9% (39.0-77.0) Lymphocytes % 34.1% (15.0-51.0) Monocytes % 7.8% (0.0-11.0) Eosinophils % 2.1% (0.0-7.0) Basophils % 0.7% (0.0-2.0) Nucleated Red Blood Cells % 0.0/100WBC (0.0-0.0) Neutrophils # 3.910^3/ul (1.6-7.5) Lymphocytes # 2.410^3/ul (0.8-2.9) Monocytes # 0.610^3/ul (0.3-0.9) Eosinophils # 0.210^3/ul (0.0-0.5) Basophils # 0.110^3/ul (0.0-0.1) Nucleated Red Blood Cells # 0.010^3/ul (0.0-0.0) Sodium Level 142mmol/L (135-144) Potassium Level 4.9mmol/L (3.5-5.1) Chloride Level 98mmol/L (97-110) Carbon Dioxide Level 28mmol/L (21-31) Anion Gap 21 (8-16) Blood Urea Nitrogen 14mg/dl (7-20) Creatinine 0.83mg/dl (0.61-1.24) Glucose Level 107mg/dl (70-220) Uric Acid 9.4mg/dl (3.1-7.9) Calcium Level 9.1mg/dl (8.4-10.2) Phosphorus Level 3.5mg/dl (2.5-4.9) Magnesium Level 2.3mg/dl (1.7-2.5) Total Bilirubin 0.6mg/dl (0.2-1.3) Direct Bilirubin 0.00mg/dl (0.00-0.20) Indirect Bilirubin 0.6mg/dl (0-1.1) Aspartate Amino Transf (AST/SGOT) 52IU/L (15-46) Alanine Aminotransferase (ALT/SGPT) 64IU/L (13-69) Alkaline Phosphatase 102IU/L (42-121) Total Protein 7.6g/dl (6.1-8.1) Albumin 4.1g/dl (3.3-4.9) Globulin 3.50g/dl (1.3-3.2) Albumin/Globulin Ratio 1.17 LUIS PEREZ NP Feb 25, 2017 18:15
== END 2017-02-25 18:00 | disposition home or self-care (01) ==
LOC: E/R 07:28 → TEL 09:13
PROVIDERS: ADMIT Internal Medicine; ATTEND Internal Medicine
DX: R07.9 Chest pain, unspecified (principal); R55 Syncope and collapse; M10.9 Gout, unspecified; E78.5 Hyperlipidemia, unspecified; M62.82 Rhabdomyolysis; R73.03 Prediabetes; E66.9 Obesity, unspecified; Z68.41 Body mass index [BMI] 40.0-44.9, adult; Z82.49 Family history of ischemic heart disease and other diseases of the circulatory system; Z79.82 Long term (current) use of aspirin
CPT/HCPCS: 36415; 70450; 70486; 71010; 80048; 80053; 80061; 80307; 82550; 82553; 83036; 83735; 84100; 84439; 84443; 84484; 84560; 85025; 85378; 85610; 85730; 93005; 93306; 93880; 93970; J7030; Z7500; Z7502; Z7610; G0378